=== PATIENT | female | born 1945 | race Caucasian/White ===

== ENCOUNTER 2019-06-22 13:05 | Inpatient (IN) | payer MEDICARE, OTHER, SELFPAY ==
[2019-06-05 08:43] VITALS: BMI 34.3
[2019-06-21] VITALS (11 sets, daily range): BP systolic 83–154; BP diastolic 44–96; PULSE 82–103; RESP 11–19; TEMP 36.8–37.1; O2SAT 95–100; BMI 34.3
--- NOTE | 2019-06-21 06:00 | DI.RAD.S_ITS ---
PROCEDURE: XR KNEE RT 1TO2V INDICATIONS: right total knee TECHNIQUE: 2 view(s) of the knee acquired. COMPARISON: None. FINDINGS: Bones: Patient is status post knee joint arthroplasty. Hardware components are in expected positions. Visualized bony structures are intact. Soft tissues: Overlying postoperative changes are noted. IMPRESSION: Normal postoperative appearance after right total knee arthroplasty. Dictated by: Honorio Suarez M.D. on 06/21/2019 at 12:10 Approved by: Honorio Suarez M.D. on 06/21/2019 at 12:10
--- NOTE | 2019-06-21 08:04 | PM.PREOP ---
Pre-operative Note Interval Note History & Physical reviewed/Exam performed by Physician: Yes Changes to H&P: No
--- NOTE | 2019-06-21 08:05 | PM.OP.1 ---
Operative Date/Time/Diagnoses Date of procedure: 06/21/19 Time of procedure: 11:08 Pre-op diagnosis: Right knee osteoarthritis Post-op diagnosis: same Procedure & Clinicians Procedure: Right total knee arthroplasty Same procedure as scheduled: Yes Indications: The patient presents today for total knee arthroplasty after failure of conservative treatment. The nature of the procedure including the risks and benefits, alternatives, postoperative course and expected outcome were discussed and all questions answered. Consent was obtained. Operative site confirmed and marked. Surgeon: Patrice Betancourt Desktop Publishing Associate: Denny Alfaro Anesthesia Type: General, Spinal and Local Operative Notes Findings: Right knee osteoarthritis with severe varus alignment. Closure Type: primary Specimen(s): none sent Prosthetic devices, grafts, tissues, transplants, or devices: Apodaca and Nephew Jose Roberto BCS: 6 femoral component, 3 tibial component, 9 mm BCS polyethylene tray and 32 x 9 mm round patella Applied: implant(s) Estimated Blood Loss (mL): 10 Blood products transfused: none Tourniquet time (min): 53 Procedure in detail: The patient was taken to the operative suite and placed under general and spinal anesthesia. The patient was given prophylactic antibiotics prior to surgery. The patient was also given tranexamic acid, 1 g, just prior to surgery for postoperative hemostasis. The lateral knee was prepped and the joint injected with 20 mL of 1% Lidocaine with epinephrine. The knee was then prepped and draped in usual sterile fashion. The leg was exsanguinated with an Esmarch dressing and the tourniquet raised to 250 torr. A 15 cm anterior incision was made. Next a medial trivector arthrotomy was made. The extensor mechanism was marked to ensure accurate repair. Initial exposing dissection was carried out medially and laterally. The knee was then extended and the patellar thickness was measured and a cut made removing approximately 9 mm of bone. The patella was then sized and drilled. Some excess lateral bone was excised and the patellofemoral ligament released. The knee was then flexed and the intramedullary femoral guide amol placed. The distal femoral cut was made in 6 ? of valgus at the +2 position. The femoral size was measured and the appropriate cutting block was then placed and the anterior, posterior and chamfer cuts made. The intramedullary tibial alignment amol was then placed. The guide was set to remove approximately 10 mm from the less affected lateral side. The proximal tibial cut was then made with an oscillating saw. All meniscus and bony debris was then removed. Posterior femoral osteophytes removed with a curved osteotome. Flexion extension gaps were checked. There is just mild medial tightness after routine exposure and osteophyte removal. This was corrected with percutaneous release of the MCL with an 18 gauge needle. The soft tissues were then injected with a combination of 20 mL of half percent Marcaine with epinephrine and 20 mL of Exparel. The trial components were then placed. The knee went into full extension and flexion beyond 120?. There was excellent medial-lateral balance throughout motion. Patellar tracking was excellent. The trial components were removed and the knee was cleansed with Pulsavac irrigation and dried. The final components were cemented with high viscosity vacuum mixed bone cement with antibiotics. The joint was filled with a dilute Betadine solution. The knee was held in extension and the patellar clamped until the cement was fully cured. The knee was then irrigated. The extensor mechanism was closed with 5 interrupted #1 Vicryl sutures and a running Quill suture at 90 degrees of flexion. The joint was then injected with a combination of 1 g of tranexamic acid and 20 mL of quarter percent Marcaine with epinephrine. The subcutaneous tissue was closed with 2 0 Vicryl. The skin was closed with pietro and surgical adhesive. An Aquacel dressing and Ac wrap were then applied. The patient tolerated the procedure well and was returned to recovery room in good condition. Complications: none Post-operative Condition: stable Disposition: PACU Plan for aftercare: [facility] protocol for total knee arthroplasty.
[2019-06-21] MEDS: LACTATED RINGERS 1,000 ML 42 ML IV ×2 (08:15→10:40)
[2019-06-21] MEDS: ACETAMINOPHEN 325 MG TABLET 975 MG PO ×3 (08:41→20:28)
[2019-06-21] MEDS: CELECOXIB 200 MG CAPSULE PO (08:42)
[2019-06-21] MEDS: PREGABALIN 75 MG CAPSULE PO (08:42)
[2019-06-21] MEDS: MIDAZOLAM 2 MG/2 ML VIAL IV (09:20)
[2019-06-21] MEDS: fentaNYL 100 MCG/2 ML INJ 50 MCG IV ×2 (09:20→09:22)
[2019-06-21] MEDS: CEFAZOLIN 2 GM/100 ML FROZ.PIGGY IV ×2 (09:40→18:11)
--- NOTE | 2019-06-21 10:13 | SUR.OPER ---
Supine on padded OR bed. Pillow under head, arms secured on padded armboards <90 degree abduction. Safety belt across torso. Non-operative leg secured with tape over blanket over lower leg. Operative leg secured in DeMayo/Michael positioner. Foam padded brace at thigh of operative leg.
[2019-06-21] MEDS: TRANEXAMIC ACID 1,000 MG VIAL 1000 MG INJ ×2 (10:23→10:29)
[2019-06-21] MEDS: LIDOCAINE 1% W/EPI 20 ML INJ (10:23)
[2019-06-21] MEDS: BUPIVACAINE 0.25% W/ EPI (PF) 40 ML, BUPIVACAINE LIPOSOME 266 MG, SODIUM CHLORIDE 0.9% ... INJ ×2 (10:24→10:30)
[2019-06-21] MEDS: SODIUM CHLORIDE IRRIG SOLUTION 250 ML, POVIDONE-IODINE SPONGE STICKS 1 APPLIC IRR (10:26)
[2019-06-21] MEDS: LACTATED RINGERS 1,000 ML 125 ML IV (13:49)
[2019-06-21] MEDS: OXYCODONE IR 5 MG TABLET 10 MG PO ×3 (13:50→20:28)
--- NOTE | 2019-06-21 14:46 | PC.NURSE ---
Admit Note: Home Medications are in pharmacy (see comment on front page) Patient to floor from Pacu with femoral nerve block; sensation to foot at 1400 with mild pain, PO pain med administered; c/m/s positive to RLE, ppp, LEORA wrap to and ice to right knee; O2 RA=99% ls clear; calf scds active; high fall risk, patient instructed to use call light, no void at this time
--- NOTE | 2019-06-21 17:12 | PT-IP ANOTE ---
Attempt PT at 14:45 and 1700 this PM but pt's RLE sensation is not at baseline. She is unable to perform supine leg press. Obtained social history and will reattempt PT tomorrow morning.
[2019-06-21] MEDS: HYDROMORPHONE 0.5 MG INJ IV ×3 (17:46→21:35)
[2019-06-21] MEDS: ASPIRIN EC 81 MG TABLET PO (20:29)
[2019-06-21] MEDS: PRAVASTATIN 20 MG TABLET 10 MG PO (20:29)
[2019-06-21] MEDS: hydrOXYzine pamoate 25 MG CAPSULE PO (21:54)
[2019-06-22] VITALS (10 sets, daily range): BP systolic 144–176; BP diastolic 53–78; PULSE 93–108; RESP 16–18; TEMP 36.2–37.4; O2SAT 92–100
[2019-06-22] MEDS: CEFAZOLIN 2 GM/100 ML FROZ.PIGGY IV (02:22)
[2019-06-22] MEDS: OXYCODONE IR 5 MG TABLET 10 MG PO ×7 (02:26→23:43)
[2019-06-22] MEDS: HYDROMORPHONE 0.5 MG INJ IV (02:31)
--- NOTE | 2019-06-22 03:13 | PC.NURSE ---
After taking vital signs pt requested to use the bedpan. Once bedpan was placed and HOB raised up pt pain went from 0/10 to 10/10 pain. Pt has requested not to have HOB moved upright. Pt also became very weepy and the RN, who was in the room, addressed the pain. 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 Afterward, she did stop crying and I reminded her to use the call light if she needed care.
[2019-06-22] MEDS: hydrOXYzine pamoate 25 MG CAPSULE PO ×4 (03:19→23:43)
--- NOTE | 2019-06-22 03:54 | PC.NURSE ---
Pt Ax0x3, VSS, lung sounds clear bilaterally. CMS is intact and romero wrap bandage is clean/dry and intact. Pt seems anxious. Pt very tearful this night expressing that she doesn't feel like she has support. When in the room with the aid, pt was placed on bedpan and went from 0-10 pain level immediately and tears, pt expressed that she thought staff was purposely causing pain. Pt was medicated for pain and expresses 0/10 pain at this time.
[2019-06-22 06:44] LABS: Hematocrit 37.1 % (36-46); Hemoglobin 12.4 g/dL (12.0-16.0)
[2019-06-22] MEDS: SODIUM CHLORIDE 0.9% FLUSH 10 ML IV ×2 (08:36→21:31)
[2019-06-22] MEDS: ACETAMINOPHEN 325 MG TABLET 975 MG PO ×3 (08:37→21:24)
[2019-06-22] MEDS: ASPIRIN EC 81 MG TABLET PO ×2 (08:37→21:26)
--- NOTE | 2019-06-22 09:01 | PC.NURSE ---
Addendum entered by Sanjuana Medrano R.N. 06/22/19 13:50: Was able to stand at bedside with PT, but did not transfer (see their note). Sleeping at this time. Pain 0 on FLACC scale. 2L O2 per NC, sats 94%. Calls with needs, light in reach. Bed alarm on. Original Note: Shift summary: Awake and alert, oriented X3. Very tearful and emotional. Reports 8/10 pain in R operative knee, and asked for clarification re: what meds are scheduled/PRN. States I just don't know...I need some clarification on what I'm supposed to be doing, I don't want to feel like I have to negotiate everything with everyone who comes in here. This aligner typewriter encouraged her to be proactive with staff, and we will try to make sure we ask her before we touch her or move anything. Medicated with scheduled Tylenol, plus PRN Oxycodone and Vistaril and updated times on white board for next available admin. Fresh ice packs to R knee. Plan to reposition in bed once pain meds kick in a bit (patient thought PO pain meds would start to work after 2 minutes or so, so this aligner typewriter oriented her to more of a 30-45 min time period). CMS+ to BLE's. Lungs CTA. HRR, a bit tachy. SCD to LLE only (refused RLE). Able to make needs known and calls appropriately. Light within reach, bed alarm active.
--- NOTE | 2019-06-22 10:57 | PT.IIE ---
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) S/P left unicompartmental knee replacement (Acute ~2004) Medical History (Last Updated 06/05/19 @ 09:27 by Marija Conte RN) Angioedema (Acute) Anxiety (Acute) Breast cancer, right (Acute ~2005) Easy bruisability (Acute) HLD (hyperlipidemia) (Acute) Pneumonia (Acute) RLS (restless legs syndrome) (Acute) Skin cancer (Acute) Spasmodic dysphonia (Acute) Physical Therapy Inpatient Evaluation/Re-Eval M1 PT/OT-IP Prior Functional Status Start: 06/21/19 14:38 Freq: NEEDED Status: Active Protocol: Document 06/22/19 10:57 AB (Rec: 06/22/19 13:09 AB [email or web address]) Medical Review Prior Functional Status Medical History Reviewed Yes Diet/Fluid Consistency Regular Communication able to make needs known Mobility and Gait pt stated that she usually uses a FWW for mobility but occasionally uses a SPC and when space is tight, pt furniture cuise. Activities of Daily Living and IADL's Pt was mod independent for ADLs before with FWW/ furniture for support in the house. 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 She has been needing more assistance from neighbors and friends to assist in grocery shopping, laundry and cleaning lately due to severe knee pain. Social History Household Members none Living Arrangements House Number of Floors (Floors) One Floor Number of Stairs To Enter/Railing? no KIMBERLY, 1 step from garage to home. 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 for many years. Pt decided to perform surgery at since she is more familiar with this area, along with friends and neighbors. She is planning to d/c to SNF first to improve mobility and strength prior to going back [place] home. M2 PT-IP Current Condition Start: 06/21/19 14:38 Freq: NEEDED Status: Active Protocol: Document 06/22/19 10:57 AB (Rec: 06/22/19 13:09 AB [email or web address]) Physical Therapy Current Condition Current Condition Evaluation Date 06/22/19 Treatment Diagnosis s/p R TKA; difficulty in walking Onset Date 06/21/19 Weight Bearing Status Weight Bearing Status Weight Bear as Tolerated M3 PT-IP Subjective Start: 06/21/19 14:38 Freq: NEEDED Status: Active Protocol: Document 06/22/19 10:57 AB (Rec: 06/22/19 13:09 AB [email or web address]) Subjective Physical Therapy Visit Type Type Initial Evaluation Visit Start Time 10:57 Visit Stop Time 11:52 Total Visit Minutes 55 Number of MANUFACTURERS SERVICE REPRESENTATIVE Visits 0 Physical Therapy Visit Comments Patient Comments pt agreeable to do PT Therapy Pain Assessment Pain When Pain Assessed During Mobility Pain Present Pain Present Pain Reported Location Right Knee Intensity 6 Scale Used Numeric (1 - 10) Pain Behaviors Guarding,Holding Area Pain Management Techniques Modification of Treatment,Re- positioning,Timing of Activity with Medications M4 PT-IP Mobility and Gait Start: 06/21/19 14:38 Freq: NEEDED Status: Active Protocol: Document 06/22/19 10:57 AB (Rec: 06/22/19 13:09 AB [email or web address]) PT-Bed Mobility Assessment Supine to Sit Supine to Sit Maximum Assistance,1 Person Assistance Sit to Supine Sit to Supine Maximum Assistance,2 Person Assistance Scooting Scooting to Edge of Bed Maximum Assistance PT-Transfer Assessment Sit to and From Stand Sit to and from Stand Moderate Assistance,2 Person Assistance,Use of Upper Extremities Equipment Transfer Assistive Device Gait Belt,Front Wheeled Walker Comments Mobility Comments pt requires cues with all tasks. pt completed supine to sit max A and max cues. pt was able to sit on EOB SBA but required max A to assist with scooting to EOB. pt completed sit to stand mod A x 2 and max cues. refused to transfer to the chair. instructed to take side steps towards HOB for positioning and completed with max A and max cues for quad activation. completed sit to supine max A x 2 and max cues. positioned pt in bed. call light and table placed within reach. Gait Assessment Gait Gait Assistance Required: Maximum Assistance,1 Person Assist Distance (Feet) 2 Able to Maintain Weight Bearing Status Yes During Gait Assistive Devices Assistive Device Gait Belt,Front Wheeled Walker Gait Deviations General Gait Pattern Decreased Stride Length, Decreased Feet Clearance Factors Limiting Gait Function Factors Limiting Gait Function Decreased Activity Tolerance, Decreased Strength,Limited Range of Motion,Pain,Poor Balance,Poor Safety Awareness Comments Gait Comments pt was able to take side steps towards HOB. PT-Balance Assessment Sitting Balance and Reactions Static Sitting Balance Ability Good Dynamic Sitting Balance Ability Good Standing Balance and Reactions Static Standing Balance Ability Poor Dynamic Standing Balance Ability Poor Device Used FWW M5 PT-IP Objective Assessments Start: 06/21/19 14:38 Freq: NEEDED Status: Active Protocol: Document 06/22/19 10:57 AB (Rec: 06/22/19 13:09 AB [email or web address]) Orientation Orientation/Cognition Level of Alertness Alert Orientation Name,Place,Situation Language Function Ability No Deficits Noted Safety Awareness Decreased Safety Awareness Memory Description Short Term Impaired Comments pt slightly sleepy and requires cues to open eyes with activities but able to answer questions and follow directions Gross Range of Motion Lower Extremity ROM Assessment Right Impaired Impairments R knee flexion: 25 deg extension: -20 deg Strength Lower Extremity Strength Assessment Bilaterally Impaired Comments Strength Comments LLE: 3+/5 RLE: 3-/5 Muscle Tone Muscle Tone WNL Yes M6 PT-IP Treatment Start: 06/21/19 14:38 Freq: NEEDED Status: Active Protocol: Document 06/22/19 10:57 AB (Rec: 06/22/19 13:09 AB [email or web address]) Physical Therapy Treatment Exercises Exercises Quad Sets,Heel Slides Education Education Provided Precautions,Weight Bearing Status,Post-Op Packet,Safety M7 PT-IP Assessment and Plan Start: 06/21/19 14:38 Freq: NEEDED Status: Active Protocol: Document 06/22/19 10:57 AB (Rec: 06/22/19 13:09 AB [email or web address]) PT Summary Assessment and Plan Potential Rehabilitation Potential Good Status of Condition at Evaluation Evolving Summary Impairments Pain,ROM,Strength,Balance, Coordination,Sensation,Tone, Cognition,Bed Mobility, Transfers,Gait,Activity Tolerance Assessment Summary pt requiring 2 person assist wtih mobility and unable to tolerate much activity with c/ o increase pain. pt lives alone and will not have much assistance at home. pt requiring increase assistance at this time and will require SNF rehab to improve strength and mobiltiy. Goals Bed Mobility Goal Minimal Assistance Transfer Goal Minimal Assistance,Front Wheeled Walker Gait Goal Minimal Assistance,Front Wheel Walker Gait Distance 100 Days to Meet Goals 5 Frequency of Treatment Frequency Of Treatment Twice a Day Treatment Plan Physical Therapy Treatment Plan Bed Mobility Training,Transfer Training,Gait Training, Therapeutic Exercise,Balance Retraining,Post Op Education, Discharge Planning,Hot or Cold Pack,Neuromuscular Re-ed, Coordination Retraining,Manual Therapy Other Recommendations and Next Treatment transfers, ambulation Focus Recommendations To Nursing Amount of Assist Needed 2 Person Assist Discharge Recommendations PT Discharge Recommendations SNF Rehab
--- NOTE | 2019-06-22 14:20 | P.PN_ITS ---
Subjective Subjective Date Patient Seen: 06/22/19 Time Patient Seen: 10:00 Interval history: Post op day 1 s/p right total knee arthroplasty with Dr. Betancourt. Overnight patient had moderate to severe pain that was moderately controlled with dilaudid. Pain was rated an 8/10. Today patient was given vistaril and the pain went to a 0/10. Patient ambulated with PT with some difficulty due to pain. Patient voiding and eating without difficulty or assistance. No bowel movement, but passing gas. Patient complains of poor treatment by overnight staff. Patient concerned about first post-op appointment location in [facility] of SNF discharge in [facility] [place]. Patient denies fever, chills, nausea, vomiting, chest pain, shortness of breath, calf pain. Exam Vital Signs (past 8 hours): - 06/22/19 07:00 06/22/19 08:19 06/22/19 11:55 Temperature 99 F Pulse Rate 102 H 108 H Respiratory Rate 17 Blood Pressure 162/75 H 176/78 H Pulse Oximetry 97 92 06/22/19 12:30 06/22/19 13:08 Temperature 98.4 F Pulse Rate 96 H Respiratory Rate 16 Blood Pressure 145/72 H Pulse Oximetry 94 98 Oxygen Delivery Method Nasal Cannula Oxygen Flow Rate 2 Narrative Exam Narrative: 73 year old female lying in bed comfortably, in no apparent distress. A&Ox3. Dressing is CDI on right knee. Knee is warm, dry, without lesions or rashes. Patient able to actively dorsiflex/plantar flex. Sensation grossly intact to light touch in lower extremities bilaterally. Dorsalis pedis 2+ bilaterally. Capillary refill <2 seconds. Objective Labs Result Diagrams: 06/22/19 06:22 Labs: Laboratory Results - last 24 hr 06/22/19 06:22 Hgb 12.4 Hct 37.1 Assessment & Plan Post-op Postoperative Procedures: Procedures Operation Date: 06/21/19 09:45 Actual Procedures Side Surgeon p Total Knee Arthroplasty Right Patrice Betancourt MD Postoperative plan narrative: Continue current pain management, muscle spasm control with vistaril Continue mobilization with PT - most likely to progress better due to muscle spasm control Discharge planned for SNF, patient changed to inpatient today, will stay for 3 nights until discharge Time Spent With Patient Time with patient: less than 15 minutes
--- NOTE | 2019-06-22 15:07 | CM.IDA ---
Addendum entered by YENNY Caceres 06/22/19 15:42: Pt went to [facility] 2 years ago after her CABBG, wants to try [facility]. Original Note: Initial DCP Assessment Note: Pt is a 73 yo female, resident of [place], [place]. Pt POD#1 from knee surgery done by Dr Betancourt. PCP: [facility] Payer: Medicare/[employer] Met w/pt this morning, explained SW role. Pt teary throughout our conversation and states I'm sorry I'm in pain and emotional right now RN just administered pain pill. Pt has lived in [facility] for 8 months, she has planned to DC from here to SNF and discussed this far in advance w/the Orthopedic team, she reports they told her this would be a feasible DC plan, thus pt proceeded with the surgery. Pt does not have any support in [place], no friends or family to assist her. Pt had lived on [address] for 17 years before she and her ex- got a divorce and sold their home. Pt's dtr lives in [place] and son lives in [place]. Pt had been receiving steroid injections from Dr Betancourt for 6 years while living in this area and she decided to return here for her surgery. Reviewed status SDC, obs, inpt. Pt hopes she is inpt to access her Medicare benefit and requests this [employer] SPECIALIST fax referral to [facility] 2. [facility]. Spoke w/ UR JAMISON Ibrahim who has made pt an inpt as of today 06.22.19. This SCALP TREATMENT SPECIALIST will fax referral packet to [facility] today. [facility] needed. P: DC expected to SNF 06.25.19 via cabulance. Following closely for additional coordination. YENNY Caceres Discharge Planning/Care Management CM Discharge Assessment Start: 06/22/19 15:04 Freq: Status: Active Protocol: Document 06/22/19 15:04 JANIE (Rec: 06/22/19 15:07 JANIE [id number]) Discharge Planning Assessment Assigned [employer] YENNY Simpson DPOA/Assigned Designee Name Cayla Almanza dtr Contact Information [phone] Advance Directives? Yes Advance Directives on File No History Provided By Patient Prior Living Arrangements House Household Members none Type of transporation used prior to Drives own vehicle admit Independent with ADL's Yes Is patient alert and oriented? Yes Patient/Family Preference Care Home Facility Barriers to Discharge Yes Comment Lives alone in [place] and does not have family or friends to support or assist once home. Discharge Plan Care Home Facility Transportation Arrangement SNF/cabulance Referrals Initiated Care Home Medicare Choice List Provided Yes SN[facility]/HH [facility]ference [facility] Has Agency SNF been contacted Yes Whiteboard Updated in Patient Room with Yes name and ext. # of [employer] Review Status In Process
--- NOTE | 2019-06-22 15:40 | PT.IPTN ---
Current Diagnoses Unilateral primary osteoarthritis, right knee (06/21/19) Presence of left artificial knee joint (06/21/19) Surgery Performed Operation Date: 06/21/19 09:45 Actual Procedures p Total Knee Arthroplasty(Right) - Patrice Betancourt MD Physical Therapy Treatment Note M2 PT-IP Current Condition Start: 06/21/19 14:38 Freq: NEEDED Status: Active Protocol: Document 06/22/19 10:57 AB (Rec: 06/22/19 13:09 AB [email or web address]) Physical Therapy Current Condition Current Condition Evaluation Date 06/22/19 Treatment Diagnosis s/p R TKA; difficulty in walking Onset Date 06/21/19 Weight Bearing Status Weight Bearing Status Weight Bear as Tolerated M3 PT-IP Subjective Start: 06/21/19 14:38 Freq: NEEDED Status: Active Protocol: Document 06/22/19 15:40 AB (Rec: 06/22/19 17:14 AB [id number]) Subjective Physical Therapy Visit Type Type Treatment Note Visit Start Time 15:40 Visit Stop Time 16:31 Total Visit Minutes [address]ROL Visits 0 Physical Therapy Visit Comments Patient Comments pt agreeable to do PT Therapy Pain Assessment Pain When Pain Assessed During Mobility Pain Present Pain Present Pain Reported Location Right Knee Intensity 5 Scale Used Numeric (1 - 10) Pain Management Techniques Re-positioning,Timing of Activity with Medications M4 PT-IP Mobility and Gait Start: 06/21/19 14:38 Freq: NEEDED Status: Active Protocol: Document 06/22/19 15:40 AB (Rec: 06/22/19 17:14 AB [id number]) PT-Bed Mobility Assessment Supine to Sit Supine to Sit Maximum Assistance,1 Person Assistance Sit to Supine Sit to Supine Maximum Assistance,1 Person Assistance Scooting Scooting to Edge of Bed Maximum Assistance PT-Transfer Assessment Sit to and From Stand Sit to and from Stand Moderate Assistance,Maximum Assistance,1 Person Assistance Equipment Transfer Assistive Device Front Wheeled Walker Orthotic/Prosthetic Devices or Brace: No Comments Mobility Comments pt completed supine to sit max A and max cues. pt was able to assist with movement of RLE better this tx session compared to this morning. pt c/o lightheadedness. BP checked: 193/87. pt refused to sit up on the chair. instructed pt to stand up and take sidesteps to reposition towards HOB. pt completed sit to stand from EOB mod A and cues. pt was able to take side steps using fWW mod A and cues. pt stated that it feels good to stand and that he is steady on his RLE. pt wanted to stand for a few minutes and tolerated ~ 6 min of static standing. required min A for controlled descent to the bed. completed sit to supine max A and max cues. positioned pt in bed. call light and table placed within reach . Gait Assessment Gait Gait Assistance Required: Moderate Assistance Distance (Feet) 2 Able to Maintain Weight Bearing Status Yes During Gait Assistive Devices Assistive Device Gait Belt,Front Wheeled Walker Orthotic/Prosthetic Devices or Brace: No Gait Deviations General Gait Pattern Antalgic,Decreased Stride Length,Decreased Feet Clearance Factors Limiting Gait Function Factors Limiting Gait Function Decreased Activity Tolerance, Decreased Strength,Limited Range of Motion,Pain,Poor Balance,Poor Safety Awareness Comments Gait Comments completed sidestepping towards HOB. PT-Balance Assessment Standing Balance and Reactions Device Used FWW M5 PT-IP Objective Assessments Start: 06/21/19 14:38 Freq: NEEDED Status: Active Protocol: Document 06/22/19 10:57 AB (Rec: 06/22/19 13:09 AB [email or web address]) Orientation Orientation/Cognition Level of Alertness Alert Orientation Name,Place,Situation Language Function Ability No Deficits Noted Safety Awareness Decreased Safety Awareness Memory Description Short Term Impaired Comments pt slightly sleepy and requires cues to open eyes with activities but able to answer questions and follow directions Gross Range of Motion Lower Extremity ROM Assessment Right Impaired Impairments R knee flexion: 25 deg extension: -20 deg Strength Lower Extremity Strength Assessment Bilaterally Impaired Comments Strength Comments LLE: 3+/5 RLE: 3-/5 Muscle Tone Muscle Tone WNL Yes M6 PT-IP Treatment Start: 06/21/19 14:38 Freq: NEEDED Status: Active Protocol: Document 06/22/19 15:40 AB (Rec: 06/22/19 17:14 AB [id number]) Physical Therapy Treatment Exercises Exercises Heel Slides Education Education Provided Weight Bearing Status,Safety M7 PT-IP Assessment and Plan Start: 06/21/19 14:38 Freq: NEEDED Status: Active Protocol: Document 06/22/19 15:40 AB (Rec: 06/22/19 17:14 AB [id number]) PT Summary Assessment and Plan Potential Rehabilitation Potential Good Summary Impairments Pain,ROM,Strength,Balance, Coordination,Sensation,Bed Mobility,Transfers,Gait, Activity Tolerance Progress Towards Goals Slow Progress due to Pain,Slow Progress due to Medical Issues,Slow Progress due to Activity Tolerance Assessment Summary pt progressing slowly but continues to require mod to max A with mobiltiy. unable to ambulate due to decrease activity tolerance but able to take side steps towards HOB. pt will benefit from SNF rehab to improve strength and functional mobility. Goals Bed Mobility Goal Minimal Assistance Transfer Goal Minimal Assistance,Front Wheeled Walker Gait Goal Minimal Assistance,Front Wheel Walker Gait Distance 100 Days to Meet Goals 5 Frequency of Treatment Frequency Of Treatment Twice a Day Treatment Plan Physical Therapy Treatment Plan Bed Mobility Training,Transfer Training,Gait Training, Therapeutic Exercise,Balance Retraining,Post Op Education, Discharge Planning,Hot or Cold Pack,Neuromuscular Re-ed, Coordination Retraining,Manual Therapy Other Recommendations and Next Treatment transfers, ambulation Focus Recommendations To Nursing Amount of Assist Needed 2 Person Assist Discharge Recommendations PT Discharge Recommendations SNF Rehab
[2019-06-22] MEDS: SENNOSIDES 8.6 MG TABLET PO (21:25)
[2019-06-22] MEDS: PRAVASTATIN 20 MG TABLET 10 MG PO (21:25)
--- NOTE | 2019-06-22 23:30 | PC.NURSE ---
A&OX3. 94% 2LNC. pt refused care from assigned FLOUR WORKER. Floor staff assisted her with her ADLS. pt used the bedpan. SCDS are on. dressing cdi w/romero wrap. PP++. RLE edema +2. CMS+. pt rates her pain 9/10 with movement, 4/10 w/o movement. call light in reach. bed alarm active.
[2019-06-23] VITALS (8 sets, daily range): BP systolic 121–159; BP diastolic 56–73; PULSE 95–107; RESP 14–19; TEMP 36.8–37.4; O2SAT 89–97
[2019-06-23] MEDS: OXYCODONE IR 5 MG TABLET 10 MG PO ×6 (03:10→20:06)
--- NOTE | 2019-06-23 05:01 | PC.NURSE ---
Pt alert and oriented. Reports pain resolved with oxycodone. Pt right knee aquacell dressing wrapped in romero wrap clean dry and intact. Ice applied. Scds on. CMS intact. No complaints
[2019-06-23] MEDS: hydrOXYzine pamoate 25 MG CAPSULE PO (06:06)
[2019-06-23] MEDS: HYDROMORPHONE 0.5 MG INJ IV (06:33)
[2019-06-23] MEDS: ASPIRIN EC 81 MG TABLET PO ×2 (10:05→20:06)
[2019-06-23] MEDS: ACETAMINOPHEN 325 MG TABLET 975 MG PO ×3 (10:05→20:06)
[2019-06-23] MEDS: SODIUM CHLORIDE 0.9% FLUSH 10 ML IV ×2 (10:07→20:10)
--- NOTE | 2019-06-23 11:29 | CM.DPC ---
DCP Cont: Patient is being accepted at [facility] in [facility]. Discharge date would occur on Monday, 06/25, for this will be 3 midnight stay. Went and updated patient in her room. She had this brand planner write this information in her notebook. Updated her white board as well. Patient grateful that she can go to [facility] for rehab. P: DCP will continue to check in. Plan is for patient to go to [facility] in [facility] on Monday. Taryn Mcghee RN/Commercial Finance Manager
--- NOTE | 2019-06-23 12:11 | PT.IPTN ---
Current Diagnoses Unilateral primary osteoarthritis, right knee (06/21/19) Presence of left artificial knee joint (06/21/19) Surgery Performed Operation Date: 06/21/19 09:45 Actual Procedures p Total Knee Arthroplasty(Right) - Patrice Betancourt MD Physical Therapy Treatment Note M2 PT-IP Current Condition Start: 06/21/19 14:38 Freq: NEEDED Status: Active Protocol: Document 06/22/19 10:57 AB (Rec: 06/22/19 13:09 AB [email or web address]) Physical Therapy Current Condition Current Condition Evaluation Date 06/22/19 Treatment Diagnosis s/p R TKA; difficulty in walking Onset Date 06/21/19 Weight Bearing Status Weight Bearing Status Weight Bear as Tolerated M3 PT-IP Subjective Start: 06/21/19 14:38 Freq: NEEDED Status: Active Protocol: Document 06/23/19 11:36 CLB (Rec: 06/23/19 12:52 CLB [id number]) Subjective Physical Therapy Visit Type Type Treatment Note Visit Start Time 11:36 Visit Stop Time 12:11 Total Visit Minutes 38 Number of SAP PI ARCHITECT Visits 1 Physical Therapy Visit Comments Patient Comments pt agreeable to do PT Therapy Pain Assessment Pain When Pain Assessed During Mobility Pain Present Pain Present Pain Reported Location Right Knee Intensity 5 Scale Used Numeric (1 - 10) Pain Management Techniques Re-positioning,Timing of Activity with Medications M4 PT-IP Mobility and Gait Start: 06/21/19 14:38 Freq: NEEDED Status: Active Protocol: Document 06/23/19 11:36 CLB (Rec: 06/23/19 12:52 CLB [id number]) PT-Bed Mobility Assessment Supine to Sit Supine to Sit Moderate Assistance,1 Person Assistance Scooting Scooting to Edge of Bed Moderate Assistance PT-Transfer Assessment Sit to and From Stand Sit to and from Stand Minimal Assistance,Moderate Assistance,1 Person Assistance ,Use of Upper Extremities Equipment Transfer Assistive Device Gait Belt,Front Wheeled Walker Orthotic/Prosthetic Devices or Brace: No Transfers Transfer Destination Chair Transfer Ability Level of Assist Minimal Assistance,Moderate Assistance,1 Person Assistance ,Use of Upper Extremities Comments Mobility Comments Pt required Min A for sit> stand from bed and Mod A from window seat. Gait Assessment Gait Gait Assistance Required: Minimum Assistance,1 Person Assist Distance (Feet) 8 Able to Maintain Weight Bearing Status Yes During Gait Assistive Devices Assistive Device Gait Belt,Front Wheeled Walker Gait Deviations General Gait Pattern Antalgic,Decreased Stride Length,Decreased Feet Clearance Factors Limiting Gait Function Factors Limiting Gait Function Decreased Activity Tolerance, Decreased Strength,Limited Range of Motion,Pain,Poor Balance,Poor Safety Awareness Comments Gait Comments Pt able to ambulate ~8ft in room with cues for weight shifting. Pt able to advance RLE using small lift and placement but only shuffled LLE forward to prevent FWB on RLE. M5 PT-IP Objective Assessments Start: 06/21/19 14:38 Freq: NEEDED Status: Active Protocol: Document 06/22/19 10:57 AB (Rec: 06/22/19 13:09 AB [email or web address]) Orientation Orientation/Cognition Level of Alertness Alert Orientation Name,Place,Situation Language Function Ability No Deficits Noted Safety Awareness Decreased Safety Awareness Memory Description Short Term Impaired Comments pt slightly sleepy and requires cues to open eyes with activities but able to answer questions and follow directions Gross Range of Motion Lower Extremity ROM Assessment Right Impaired Impairments R knee flexion: 25 deg extension: -20 deg Strength Lower Extremity Strength Assessment Bilaterally Impaired Comments Strength Comments LLE: 3+/5 RLE: 3-/5 Muscle Tone Muscle Tone WNL Yes M6 PT-IP Treatment Start: 06/21/19 14:38 Freq: NEEDED Status: Active Protocol: Document 06/23/19 11:36 CLB (Rec: 06/23/19 12:52 CLB [id number]) Physical Therapy Treatment Exercises Exercises Ankle Pumps,Quad Sets,Heel Slides Education Education Provided Weight Bearing Status,Safety M7 PT-IP Assessment and Plan Start: 06/21/19 14:38 Freq: NEEDED Status: Active Protocol: Document 06/23/19 11:36 CLB (Rec: 06/23/19 12:52 CLB [id number]) PT Summary Assessment and Plan Summary Impairments Pain,ROM,Strength,Balance, Coordination,Sensation,Bed Mobility,Transfers,Gait, Activity Tolerance Progress Towards Goals Slow Progress due to Pain,Slow Progress due to Medical Issues,Slow Progress due to Activity Tolerance Assessment Summary Pt continues to progress slowly but was able to improve with bed mobility and increased gait distance. Goals Bed Mobility Goal Minimal Assistance Transfer Goal Minimal Assistance,Front Wheeled Walker Gait Goal Minimal Assistance,Front Wheel Walker Gait Distance 100 Days to Meet Goals 5 Frequency of Treatment Frequency Of Treatment Twice a Day Treatment Plan Physical Therapy Treatment Plan Bed Mobility Training,Transfer Training,Gait Training, Therapeutic Exercise,Balance Retraining,Post Op Education, Discharge Planning,Hot or Cold Pack,Neuromuscular Re-ed, Coordination Retraining,Manual Therapy Other Recommendations and Next Treatment transfers, ambulation Focus Recommendations To Nursing Amount of Assist Needed 2 Person Assist Discharge Recommendations PT Discharge Recommendations SNF Rehab
--- NOTE | 2019-06-23 14:28 | PM.PN.1 ---
Subjective Subjective Date Patient Seen: 06/23/19 Time Patient Seen: 12:12 Interval history: Alka is making some progress with physical therapy. She continues to have significant problems with pain control. She is seated in a chair but has not been able to ambulate outside the room. She lives in [place] by herself and was anticipating taking a train home when she is recovered to the extent that she can be independent. Exam Vital Signs (past 8 hours): - 06/23/19 08:00 06/23/19 13:15 06/23/19 13:17 Temperature 98.3 F 98.4 F Pulse Rate 103 H 107 H Respiratory Rate 17 16 Blood Pressure 159/73 H 121/56 L Pulse Oximetry 95 89 L 96 06/23/19 14:06 Temperature Pulse Rate Respiratory Rate Blood Pressure Pulse Oximetry 94 Oxygen Delivery Method Nasal Cannula Oxygen Flow Rate 2 Narrative Exam Narrative: Resting comfortably in a chair, alert and oriented, dressings dry and intact, but weak straight leg raise on the right, neurologically intact distally vascular status intact distally she has a weak active straight leg raise on the right. Objective Labs Result Diagrams: 06/22/19 06:22 Assessment & Plan Assessment & Plan narrative: Impression is improving postoperatively status post right total knee arthroplasty. Continued issues with pain control overall. I anticipate she will require additional inpatient treatment and I anticipate a ventral discharged to a nursing home facility for rehab.
--- NOTE | 2019-06-23 14:52 | PT.IPTN ---
Current Diagnoses Unilateral primary osteoarthritis, right knee (06/21/19) Presence of left artificial knee joint (06/21/19) Surgery Performed Operation Date: 06/21/19 09:45 Actual Procedures p Total Knee Arthroplasty(Right) - Patrice Betancourt MD Physical Therapy Treatment Note M2 PT-IP Current Condition Start: 06/21/19 14:38 Freq: NEEDED Status: Active Protocol: Document 06/22/19 10:57 AB (Rec: 06/22/19 13:09 AB [email or web address]) Physical Therapy Current Condition Current Condition Evaluation Date 06/22/19 Treatment Diagnosis s/p R TKA; difficulty in walking Onset Date 06/21/19 Weight Bearing Status Weight Bearing Status Weight Bear as Tolerated M3 PT-IP Subjective Start: 06/21/19 14:38 Freq: NEEDED Status: Active Protocol: Document 06/23/19 14:13 CLB (Rec: 06/23/19 15:21 CLB [id number]) Subjective Physical Therapy Visit Type Type Treatment Note Visit Start Time 14:13 Visit Stop Time 14:52 Total Visit Minutes 39 Number of INFORMATION SECURITY ASSOCIATE Visits 2 Physical Therapy Visit Comments Patient Comments pt agreeable to do PT. Pt stated that after talking with the doctor she is thinking she won't go to SNF rehab. Therapy Pain Assessment Pain When Pain Assessed During Mobility Pain Present Pain Present Pain Reported Location Right Knee Intensity 5 Scale Used Numeric (1 - 10) Pain Management Techniques Re-positioning,Timing of Activity with Medications M4 PT-IP Mobility and Gait Start: 06/21/19 14:38 Freq: NEEDED Status: Active Protocol: Document 06/23/19 14:13 CLB (Rec: 06/23/19 15:21 CLB [id number]) PT-Bed Mobility Assessment Sit to Supine Sit to Supine Minimal Assistance,1 Person Assistance Scooting Scooting Up and Down in Bed Minimal Assistance PT-Transfer Assessment Sit to and From Stand Sit to and from Stand Minimal Assistance,1 Person Assistance,Use of Upper Extremities Equipment Transfer Assistive Device Gait Belt,Front Wheeled Walker Orthotic/Prosthetic Devices or Brace: No Transfers Transfer Destination Chair Transfer Ability Level of Assist Minimal Assistance,1 Person Assistance,Use of Upper Extremities Comments Mobility Comments Pt improving with all transfers requiring Min A with RLE into bed. Gait Assessment Gait Gait Assistance Required: Minimum Assistance,1 Person Assist Distance (Feet) 15 Able to Maintain Weight Bearing Status Yes During Gait Assistive Devices Assistive Device Gait Belt,Front Wheeled Walker Gait Deviations General Gait Pattern Antalgic,Decreased Stride Length,Decreased Feet Clearance Factors Limiting Gait Function Factors Limiting Gait Function Decreased Activity Tolerance, Decreased Strength,Limited Range of Motion,Pain,Poor Balance,Poor Safety Awareness Comments Gait Comments Pt improved with gait quality but will scoot LLE backwards towards bed before sitting rather than pick it up to walk it back. M5 PT-IP Objective Assessments Start: 06/21/19 14:38 Freq: NEEDED Status: Active Protocol: Document 06/22/19 10:57 AB (Rec: 06/22/19 13:09 AB [email or web address]) Orientation Orientation/Cognition Level of Alertness Alert Orientation Name,Place,Situation Language Function Ability No Deficits Noted Safety Awareness Decreased Safety Awareness Memory Description Short Term Impaired Comments pt slightly sleepy and requires cues to open eyes with activities but able to answer questions and follow directions Gross Range of Motion Lower Extremity ROM Assessment Right Impaired Impairments R knee flexion: 25 deg extension: -20 deg Strength Lower Extremity Strength Assessment Bilaterally Impaired Comments Strength Comments LLE: 3+/5 RLE: 3-/5 Muscle Tone Muscle Tone WNL Yes M6 PT-IP Treatment Start: 06/21/19 14:38 Freq: NEEDED Status: Active Protocol: Document 06/23/19 14:13 CLB (Rec: 06/23/19 15:21 CLB [id number]) Physical Therapy Treatment Exercises Exercises Ankle Pumps,Gluteal Sets,Quad Sets,Heel Slides,Short Arc Quads Education Education Provided Weight Bearing Status,Safety Other Treatments Other Treatment Performed Put on SCD's once pt was back to bed. M7 PT-IP Assessment and Plan Start: 06/21/19 14:38 Freq: NEEDED Status: Active Protocol: Document 06/23/19 14:13 CLB (Rec: 06/23/19 15:21 CLB [id number]) PT Summary Assessment and Plan Summary Impairments Pain,ROM,Strength,Balance, Coordination,Sensation,Bed Mobility,Transfers,Gait, Activity Tolerance Progress Towards Goals Slow Progress due to Pain,Slow Progress due to Medical Issues,Slow Progress due to Activity Tolerance Assessment Summary Pt improving with all mobility but would not be safe for discharge home without 24/7 assist with someone capable of providing Min-Mod A. Pt would benefit from SNF rehab to improve strength, mobility and increase activity tolerance. Goals Bed Mobility Goal Minimal Assistance Transfer Goal Minimal Assistance,Front Wheeled Walker Gait Goal Minimal Assistance,Front Wheel Walker Gait Distance 100 Days to Meet Goals 5 Frequency of Treatment Frequency Of Treatment Twice a Day Treatment Plan Physical Therapy Treatment Plan Bed Mobility Training,Transfer Training,Gait Training, Therapeutic Exercise,Balance Retraining,Post Op Education, Discharge Planning,Hot or Cold Pack,Neuromuscular Re-ed, Coordination Retraining,Manual Therapy Other Recommendations and Next Treatment transfers, ambulation Focus Recommendations To Nursing Amount of Assist Needed 2 Person Assist Discharge Recommendations PT Discharge Recommendations SNF Rehab
[2019-06-23] MEDS: PRAVASTATIN 20 MG TABLET 10 MG PO (20:06)
[2019-06-23] MEDS: SENNOSIDES 8.6 MG TABLET PO (20:06)
[2019-06-24] MEDS: OXYCODONE IR 5 MG TABLET 10 MG PO ×6 (01:10→21:01)
--- NOTE | 2019-06-24 01:32 | PC.NURSE ---
Addendum entered by Daysi Dwyer R.N. 06/24/19 06:13: Up between 0300 and 0430 to bathroom, walking around room and sitting up in chair. When back in bed was medicated with Oxycodone for 6/10 right knee pain and currently is asleep. Original Note: Patient is alert and oriented. Breath sounds CTA but only 89% on RA (found with oxygen off) so placed back on oxygen at 1L/min per NC (which she was on at shift change). HRR. Denies nausea. BT present and abdomen is soft; passing flatus. Denies dysuria, frequency or urgency. Is able to assist with repositioning. Out of bed with walker and 1 assist although states she is still feeling weak in right LE. Aquacel dressing CDI; romero wrap over dressing on right knee. Bruising noted on left UE and right thigh. Nonpitting edema present in right foot/ankle/lower leg. CMS is intact. States pain is 6/10; requests/medicated with Oxycodone + Vistaril and ice applied. Fall risk score is moderate; bed alarm is activated. Wearing bilateral calf SCD's.
[2019-06-24] MEDS: hydrOXYzine pamoate 25 MG CAPSULE PO (01:33)
[2019-06-24 04:32] VITALS: BP 149/83; PULSE 103; RESP 20; TEMP 37.5; O2SAT 96
--- NOTE | 2019-06-24 07:44 | P.PN_ITS ---
Subjective Subjective Date Patient Seen: 06/24/19 Time Patient Seen: 07:44 Interval history: POD #3 s/p L TKA with Dr. Betancourt. Patient lives in [place] and has been slow to mobilize. She is likely requiring SNF. Complaints of muscle spasms this morning. Exam Vital Signs (past 8 hours): - 06/24/19 04:32 Temperature 99.5 F Pulse Rate 103 H Respiratory Rate 20 Blood Pressure 149/83 H Pulse Oximetry 96 Oxygen Delivery Method Nasal Cannula Oxygen Flow Rate 1 Narrative Exam Narrative: Patient lying in bed in no acute distress. She is alert are x3. Calves are soft, compressible, nontender bilaterally. SCDs in place. Pulses are symmetrical. She is able to actively dorsiflex and plantar flex. Ac wrap in place. Dressing CDI. Objective Labs Result Diagrams: 06/22/19 06:22 Assessment & Plan Post-op Postoperative Procedures: Procedures Operation Date: 06/21/19 09:45 Actual Procedures Side Surgeon p Total Knee Arthroplasty Right Patrice Betancourt MD patient will continue to mobilize with physical therapy today. She can try taking Flexeril for muscle spasms today. She will likely need intermediate facility with discharged tomorrow.
[2019-06-24] MEDS: MAGNESIUM HYDROXIDE 30 ML UDC PO (09:31)
[2019-06-24] MEDS: ACETAMINOPHEN 325 MG TABLET 975 MG PO ×3 (09:31→21:02)
[2019-06-24] MEDS: DOCUSATE 100 MG CAPSULE PO (09:32)
[2019-06-24] MEDS: ASPIRIN EC 81 MG TABLET PO ×2 (09:32→21:02)
[2019-06-24] MEDS: CYCLOBENZAPRINE 5 MG TABLET PO (09:32)
[2019-06-24] MEDS: SODIUM CHLORIDE 0.9% FLUSH 10 ML IV ×2 (09:33→21:02)
[2019-06-24 09:45] VITALS: BP 157/71; PULSE 99; RESP 18; TEMP 37.4; O2SAT 93
--- NOTE | 2019-06-24 09:45 | PT.IPTN ---
Current Diagnoses Unilateral primary osteoarthritis, right knee (06/21/19) Presence of left artificial knee joint (06/21/19) Surgery Performed Operation Date: 06/21/19 09:45 Actual Procedures p Total Knee Arthroplasty(Right) - Patrice Betancourt MD Physical Therapy Treatment Note M2 PT-IP Current Condition Start: 06/21/19 14:38 Freq: NEEDED Status: Active Protocol: Document 06/22/19 10:57 AB (Rec: 06/22/19 13:09 AB [email or web address]) Physical Therapy Current Condition Current Condition Evaluation Date 06/22/19 Treatment Diagnosis s/p R TKA; difficulty in walking Onset Date 06/21/19 Weight Bearing Status Weight Bearing Status Weight Bear as Tolerated M3 PT-IP Subjective Start: 06/21/19 14:38 Freq: NEEDED Status: Active Protocol: Document 06/24/19 09:02 CLB (Rec: 06/24/19 15:26 CLB [id number]) Subjective Physical Therapy Visit Type Type Treatment Note Visit Start Time 09:02 Visit Stop Time 09:45 Total Visit Minutes 43 Number of CODE OFFICIAL Visits 3 Physical Therapy Visit Comments Patient Comments pt agreeable to do PT Therapy Pain Assessment Pain When Pain Assessed At Rest Pain Present Pain Present Denied Pain M4 PT-IP Mobility and Gait Start: 06/21/19 14:38 Freq: NEEDED Status: Active Protocol: Document 06/24/19 09:02 CLB (Rec: 06/24/19 15:26 CLB [id number]) PT-Bed Mobility Assessment Supine to Sit Supine to Sit Minimal Assistance,1 Person Assistance,Head of Bed Elevated Scooting Scooting to Edge of Bed Contact Guard Assistance PT-Transfer Assessment Sit to and From Stand Sit to and from Stand Minimal Assistance,1 Person Assistance,Use of Upper Extremities Equipment Transfer Assistive Device Gait Belt,Front Wheeled Walker Orthotic/Prosthetic Devices or Brace: No Transfers Transfer Destination Chair Transfer Ability Level of Assist Minimal Assistance,1 Person Assistance,Use of Upper Extremities Comments Mobility Comments Pt able to use cane to bring leg off EOB. Gait Assessment Gait Gait Assistance Required: Minimum Assistance,1 Person Assist Distance (Feet) 30 Able to Maintain Weight Bearing Status Yes During Gait Assistive Devices Assistive Device Gait Belt,Front Wheeled Walker Gait Deviations General Gait Pattern Antalgic,Decreased Stride Length,Decreased Feet Clearance Factors Limiting Gait Function Factors Limiting Gait Function Decreased Activity Tolerance, Decreased Strength,Limited Range of Motion,Pain,Poor Balance,Poor Safety Awareness Comments Gait Comments Pt able to ambulate with increased time and Max cues for step sequencing. Pt very fatigued after ~30ft. Stair Climbing Assessment Comments Stair Climbing Comments Unable M5 PT-IP Objective Assessments Start: 06/21/19 14:38 Freq: NEEDED Status: Active Protocol: Document 06/22/19 10:57 AB (Rec: 06/22/19 13:09 AB [email or web address]) Orientation Orientation/Cognition Level of Alertness Alert Orientation Name,Place,Situation Language Function Ability No Deficits Noted Safety Awareness Decreased Safety Awareness Memory Description Short Term Impaired Comments pt slightly sleepy and requires cues to open eyes with activities but able to answer questions and follow directions Gross Range of Motion Lower Extremity ROM Assessment Right Impaired Impairments R knee flexion: 25 deg extension: -20 deg Strength Lower Extremity Strength Assessment Bilaterally Impaired Comments Strength Comments LLE: 3+/5 RLE: 3-/5 Muscle Tone Muscle Tone WNL Yes M6 PT-IP Treatment Start: 06/21/19 14:38 Freq: NEEDED Status: Active Protocol: Document 06/24/19 09:02 CLB (Rec: 06/24/19 15:26 CLB [id number]) Physical Therapy Treatment Exercises Exercises Ankle Pumps,Gluteal Sets,Quad Sets,Heel Slides,Short Arc Quads Education Education Provided Weight Bearing Status,Safety M7 PT-IP Assessment and Plan Start: 06/21/19 14:38 Freq: NEEDED Status: Active Protocol: Document 06/24/19 09:02 CLB (Rec: 06/24/19 15:26 CLB [id number]) PT Summary Assessment and Plan Summary Impairments Pain,ROM,Strength,Balance, Coordination,Sensation,Bed Mobility,Transfers,Gait, Activity Tolerance Progress Towards Goals Slow Progress due to Pain,Slow Progress due to Medical Issues,Slow Progress due to Activity Tolerance Assessment Summary Pt progressing slowly due to decreased activity tolerance. Pt is very sleepy during tx sessions requiring cues to keep her eyes open. Pt requires one step instruction in order to be able to follow through with proper sequencing and needs increased time to initiate movement due to her sleepiness. Due to pts slow progress with mobility she will need SNF rehab to improve strength, and increase activity tolerance. Goals Bed Mobility Goal Minimal Assistance Transfer Goal Minimal Assistance,Front Wheeled Walker Gait Goal Minimal Assistance,Front Wheel Walker Gait Distance 100 Days to Meet Goals 5 Frequency of Treatment Frequency Of Treatment Twice a Day Treatment Plan Physical Therapy Treatment Plan Bed Mobility Training,Transfer Training,Gait Training, Therapeutic Exercise,Balance Retraining,Post Op Education, Discharge Planning,Hot or Cold Pack,Neuromuscular Re-ed, Coordination Retraining,Manual Therapy Other Recommendations and Next Treatment transfers, ambulation Focus Recommendations To Nursing Amount of Assist Needed 2 Person Assist Discharge Recommendations PT Discharge Recommendations SNF Rehab
[2019-06-24 12:00] VITALS: BP 142/69; PULSE 102; RESP 18; TEMP 37.6; O2SAT 94
--- NOTE | 2019-06-24 13:31 | PC.NURSE ---
Day shift: Pt sitting in chair after breakfast. Tolerating well. Flexaril ordered by JESENIA Nicole and that was given. 10mg PO oxycodone and Flexaril given per MAR with result of pain 0/10. Pt to work with PT/OT again this afternoon. Call light in reach. Pt agrees that she will not get OOB w/o help from staff. Medium fall risk at this time.
[2019-06-24 15:40] VITALS: BP 143/69; PULSE 89; RESP 18; TEMP 36.9; O2SAT 95
--- NOTE | 2019-06-24 15:48 | CM.DPC ---
DCP/Continued: Reviewed chart. Met with patient to confirm d/c plan. Current plan [facility] for [facility]. Therapy continues to recommend SNF and patient continues to be agreeable to go for short SNF stay. P: [facility] when medically stable. Grecia aware of potential d/c tomorrow. YENNY Sifuentes
--- NOTE | 2019-06-24 16:22 | PT.IPTN ---
Current Diagnoses Unilateral primary osteoarthritis, right knee (06/21/19) Presence of left artificial knee joint (06/21/19) Surgery Performed Operation Date: 06/21/19 09:45 Actual Procedures p Total Knee Arthroplasty(Right) - Patrice Betancourt MD Physical Therapy Treatment Note M2 PT-IP Current Condition Start: 06/21/19 14:38 Freq: NEEDED Status: Active Protocol: Document 06/22/19 10:57 AB (Rec: 06/22/19 13:09 AB [email or web address]) Physical Therapy Current Condition Current Condition Evaluation Date 06/22/19 Treatment Diagnosis s/p R TKA; difficulty in walking Onset Date 06/21/19 Weight Bearing Status Weight Bearing Status Weight Bear as Tolerated M3 PT-IP Subjective Start: 06/21/19 14:38 Freq: NEEDED Status: Active Protocol: Document 06/24/19 15:58 CLB (Rec: 06/24/19 16:34 CLB [id number]) Subjective Physical Therapy Visit Type Type Treatment Note Visit Start Time 15:58 Visit Stop Time 16:22 Total Visit Minutes 24 Number of THEOLOGY PROFESSOR Visits 4 Physical Therapy Visit Comments Patient Comments pt agreeable to do PT Therapy Pain Assessment Pain When Pain Assessed After Treatment Pain Present Pain Present Pain Reported Location Right Knee Intensity 6 Scale Used Numeric (1 - 10) Pain Management Techniques Re-positioning,Timing of Activity with Medications M4 PT-IP Mobility and Gait Start: 06/21/19 14:38 Freq: NEEDED Status: Active Protocol: Document 06/24/19 15:58 CLB (Rec: 06/24/19 16:34 CLB [id number]) PT-Bed Mobility Assessment Supine to Sit Supine to Sit Minimal Assistance,1 Person Assistance,Head of Bed Elevated Sit to Supine Sit to Supine Minimal Assistance,1 Person Assistance PT-Transfer Assessment Sit to and From Stand Sit to and from Stand Minimal Assistance,1 Person Assistance,Use of Upper Extremities Equipment Transfer Assistive Device Gait Belt,Front Wheeled Walker Orthotic/Prosthetic Devices or Brace: No Transfers Transfer Destination Bed Transfer Ability Level of Assist Minimal Assistance,1 Person Assistance,Use of Upper Extremities Comments Mobility Comments Pt able to get RLE of bed w/o use of cane but needed Min A of RLE back into bed. Gait Assessment Gait Gait Assistance Required: Minimum Assistance,1 Person Assist Distance (Feet) 15 Able to Maintain Weight Bearing Status Yes During Gait Assistive Devices Assistive Device Gait Belt,Front Wheeled Walker Gait Deviations General Gait Pattern Antalgic,Decreased Stride Length,Decreased Feet Clearance Factors Limiting Gait Function Factors Limiting Gait Function Decreased Activity Tolerance, Decreased Strength,Limited Range of Motion,Pain,Poor Balance,Poor Safety Awareness Comments Gait Comments Pt felt she was unable to ambulate further stating she felt like she did enough today . Stair Climbing Assessment Comments Stair Climbing Comments Unable M5 PT-IP Objective Assessments Start: 06/21/19 14:38 Freq: NEEDED Status: Active Protocol: Document 06/22/19 10:57 AB (Rec: 06/22/19 13:09 AB [email or web address]) Orientation Orientation/Cognition Level of Alertness Alert Orientation Name,Place,Situation Language Function Ability No Deficits Noted Safety Awareness Decreased Safety Awareness Memory Description Short Term Impaired Comments pt slightly sleepy and requires cues to open eyes with activities but able to answer questions and follow directions Gross Range of Motion Lower Extremity ROM Assessment Right Impaired Impairments R knee flexion: 25 deg extension: -20 deg Strength Lower Extremity Strength Assessment Bilaterally Impaired Comments Strength Comments LLE: 3+/5 RLE: 3-/5 Muscle Tone Muscle Tone WNL Yes M6 PT-IP Treatment Start: 06/21/19 14:38 Freq: NEEDED Status: Active Protocol: Document 06/24/19 15:58 CLB (Rec: 06/24/19 16:34 CLB [id number]) Physical Therapy Treatment Exercises Exercises Ankle Pumps,Gluteal Sets,Quad Sets,Heel Slides,Short Arc Quads Education Education Provided Weight Bearing Status,Safety Other Treatments Other Treatment Performed Put on SCD's once pt was back to bed. M7 PT-IP Assessment and Plan Start: 06/21/19 14:38 Freq: NEEDED Status: Active Protocol: Document 06/24/19 15:58 CLB (Rec: 06/24/19 16:34 CLB [id number]) PT Summary Assessment and Plan Summary Impairments Pain,ROM,Strength,Balance, Coordination,Sensation,Bed Mobility,Transfers,Gait, Activity Tolerance Progress Towards Goals Slow Progress due to Pain,Slow Progress due to Medical Issues,Slow Progress due to Activity Tolerance Assessment Summary Pt continues to require increased time all mobility and decreased activity tolerance. Pt is able to perform theraputic exercises with AROM/AAROM. Pt with increased pain after therapy session requesting pain meds. RN informed. Pt left in bed with all needs within reach, bed alarm on, SCD's on and ice on right knee. Pt will require SNF rehab to improve mobility and increase activity tolerance. Goals Bed Mobility Goal Minimal Assistance Transfer Goal Minimal Assistance,Front Wheeled Walker Gait Goal Minimal Assistance,Front Wheel Walker Gait Distance 100 Days to Meet Goals 5 Frequency of Treatment Frequency Of Treatment Twice a Day Treatment Plan Physical Therapy Treatment Plan Bed Mobility Training,Transfer Training,Gait Training, Therapeutic Exercise,Balance Retraining,Post Op Education, Discharge Planning,Hot or Cold Pack,Neuromuscular Re-ed, Coordination Retraining,Manual Therapy Other Recommendations and Next Treatment transfers, ambulation Focus Recommendations To Nursing Amount of Assist Needed 1 Person Assist Discharge Recommendations PT Discharge Recommendations SNF Rehab
[2019-06-24 17:05] VITALS: PULSE 93; O2SAT 95
[2019-06-24 20:47] VITALS: BP 145/79; PULSE 91; RESP 19; TEMP 36.5; O2SAT 94
[2019-06-24] MEDS: SENNOSIDES 8.6 MG TABLET PO (21:02)
[2019-06-24] MEDS: PRAVASTATIN 20 MG TABLET 10 MG PO (21:02)
[2019-06-25 01:15] VITALS: BP 145/68; PULSE 90; RESP 15; TEMP 36.8; O2SAT 95
--- NOTE | 2019-06-25 01:24 | PC.NURSE ---
Addendum entered by Daysi Dwyer R.N. 06/25/19 06:36: States pain this morning is 5/10; medicated with Oxycodone. Addendum entered by Daysi Dwyer R.N. 06/25/19 03:46: Up to bathroom and now crying stating pain has gotten out of control as she didn't request pain meds earlier; medicated by JAMISON Mujica with Oxycodone and now given Vistaril in addition to ice packs. Allowed patient to vent. Assured patient RN would check with her at 0630 to see if she wants more pain medication at that time. Original Note: Patient is alert and oriented. Breath sounds with expiratory wheezes anterior upper lobes but CTA posteriorly; RA sat 95%. HRR. Denies nausea. BT present and is passing flatus but has not had BM since 06/21; refused MOM or prune juice on previous shift but did take Senna. Denies dysuria, frequency or urgency. Able to turn self in bed. Uses walker and 1 assist when out of bed due to weakeness in right LE. Aquacel with small spot of drainage noted; romero wrap is CDI. Bruising on left UE and right thigh noted. Allevyn dressing to right buttock is intact with dime size amount serous drainage noted. CMS intact bilaterally. Wearing calf SCD's. Fall risk score is moderate; bed alarm is activated. Currently denies pain but agreeable to ice pack being applied.
[2019-06-25] MEDS: OXYCODONE IR 5 MG TABLET 10 MG PO ×4 (03:34→16:12)
[2019-06-25] MEDS: hydrOXYzine pamoate 25 MG CAPSULE PO (03:43)
[2019-06-25 03:45] VITALS: BP 157/78; PULSE 93; RESP 20; TEMP 37.1; O2SAT 98
[2019-06-25 07:00] VITALS: BP 157/62; PULSE 92; RESP 16; TEMP 37.7; O2SAT 95
[2019-06-25] MEDS: CYCLOBENZAPRINE 5 MG TABLET PO ×2 (07:40→13:27)
[2019-06-25] MEDS: ACETAMINOPHEN 325 MG TABLET 975 MG PO ×2 (08:26→14:28)
[2019-06-25] MEDS: ASPIRIN EC 81 MG TABLET PO (08:26)
[2019-06-25] MEDS: DOCUSATE 100 MG CAPSULE PO (08:28)
[2019-06-25] MEDS: MAGNESIUM HYDROXIDE 30 ML UDC PO (08:28)
--- NOTE | 2019-06-25 10:10 | PT.IPTN ---
Current Diagnoses Unilateral primary osteoarthritis, right knee (06/21/19) Presence of left artificial knee joint (06/21/19) Surgery Performed Operation Date: 06/21/19 09:45 Actual Procedures p Total Knee Arthroplasty(Right) - Patrice Betancourt MD Physical Therapy Treatment Note M2 PT-IP Current Condition Start: 06/21/19 14:38 Freq: NEEDED Status: Active Protocol: Document 06/22/19 10:57 AB (Rec: 06/22/19 13:09 AB [email or web address]) Physical Therapy Current Condition Current Condition Evaluation Date 06/22/19 Treatment Diagnosis s/p R TKA; difficulty in walking Onset Date 06/21/19 Weight Bearing Status Weight Bearing Status Weight Bear as Tolerated M3 PT-IP Subjective Start: 06/21/19 14:38 Freq: NEEDED Status: Active Protocol: Document 06/25/19 10:10 CLB (Rec: 06/25/19 10:57 CLB [email or web address]) Subjective Physical Therapy Visit Type Type Patient Refusal Notes Pt refused therapy stating she did not want to work with therapy at this time to come back after her next pain med which is on white board as 12: 30. Will check back with pt in PM. M4 PT-IP Mobility and Gait Start: 06/21/19 14:38 Freq: NEEDED Status: Active Protocol: Document 06/24/19 15:58 CLB (Rec: 06/24/19 16:34 CLB [id number]) PT-Bed Mobility Assessment Supine to Sit Supine to Sit Minimal Assistance,1 Person Assistance,Head of Bed Elevated Sit to Supine Sit to Supine Minimal Assistance,1 Person Assistance PT-Transfer Assessment Sit to and From Stand Sit to and from Stand Minimal Assistance,1 Person Assistance,Use of Upper Extremities Equipment Transfer Assistive Device Gait Belt,Front Wheeled Walker Orthotic/Prosthetic Devices or Brace: No Transfers Transfer Destination Bed Transfer Ability Level of Assist Minimal Assistance,1 Person Assistance,Use of Upper Extremities Comments Mobility Comments Pt able to get RLE of bed w/o use of cane but needed Min A of RLE back into bed. Gait Assessment Gait Gait Assistance Required: Minimum Assistance,1 Person Assist Distance (Feet) 15 Able to Maintain Weight Bearing Status Yes During Gait Assistive Devices Assistive Device Gait Belt,Front Wheeled Walker Gait Deviations General Gait Pattern Antalgic,Decreased Stride Length,Decreased Feet Clearance Factors Limiting Gait Function Factors Limiting Gait Function Decreased Activity Tolerance, Decreased Strength,Limited Range of Motion,Pain,Poor Balance,Poor Safety Awareness Comments Gait Comments Pt felt she was unable to ambulate further stating she felt like she did enough today . Stair Climbing Assessment Comments Stair Climbing Comments Unable M5 PT-IP Objective Assessments Start: 06/21/19 14:38 Freq: NEEDED Status: Active Protocol: Document 06/22/19 10:57 AB (Rec: 06/22/19 13:09 AB [email or web address]) Orientation Orientation/Cognition Level of Alertness Alert Orientation Name,Place,Situation Language Function Ability No Deficits Noted Safety Awareness Decreased Safety Awareness Memory Description Short Term Impaired Comments pt slightly sleepy and requires cues to open eyes with activities but able to answer questions and follow directions Gross Range of Motion Lower Extremity ROM Assessment Right Impaired Impairments R knee flexion: 25 deg extension: -20 deg Strength Lower Extremity Strength Assessment Bilaterally Impaired Comments Strength Comments LLE: 3+/5 RLE: 3-/5 Muscle Tone Muscle Tone WNL Yes M6 PT-IP Treatment Start: 06/21/19 14:38 Freq: NEEDED Status: Active Protocol: Document 06/24/19 15:58 CLB (Rec: 06/24/19 16:34 CLB [id number]) Physical Therapy Treatment Exercises Exercises Ankle Pumps,Gluteal Sets,Quad Sets,Heel Slides,Short Arc Quads Education Education Provided Weight Bearing Status,Safety Other Treatments Other Treatment Performed Put on SCD's once pt was back to bed. M7 PT-IP Assessment and Plan Start: 06/21/19 14:38 Freq: NEEDED Status: Active Protocol: Document 06/24/19 15:58 CLB (Rec: 06/24/19 16:34 CLB [id number]) PT Summary Assessment and Plan Summary Impairments Pain,ROM,Strength,Balance, Coordination,Sensation,Bed Mobility,Transfers,Gait, Activity Tolerance Progress Towards Goals Slow Progress due to Pain,Slow Progress due to Medical Issues,Slow Progress due to Activity Tolerance Assessment Summary Pt continues to require increased time all mobility and decreased activity tolerance. Pt is able to perform theraputic exercises with AROM/AAROM. Pt with increased pain after therapy session requesting pain meds. RN informed. Pt left in bed with all needs within reach, bed alarm on, SCD's on and ice on right knee. Pt will require SNF rehab to improve mobility and increase activity tolerance. Goals Bed Mobility Goal Minimal Assistance Transfer Goal Minimal Assistance,Front Wheeled Walker Gait Goal Minimal Assistance,Front Wheel Walker Gait Distance 100 Days to Meet Goals 5 Frequency of Treatment Frequency Of Treatment Twice a Day Treatment Plan Physical Therapy Treatment Plan Bed Mobility Training,Transfer Training,Gait Training, Therapeutic Exercise,Balance Retraining,Post Op Education, Discharge Planning,Hot or Cold Pack,Neuromuscular Re-ed, Coordination Retraining,Manual Therapy Other Recommendations and Next Treatment transfers, ambulation Focus Recommendations To Nursing Amount of Assist Needed 1 Person Assist Discharge Recommendations PT Discharge Recommendations SNF Rehab
--- NOTE | 2019-06-25 11:37 | PM.PNPO.1 ---
Subjective Subjective Date Patient Seen: 06/25/19 Time Patient Seen: 07:30 Interval history: Postop day 4 status post TLIF with Dr. Coker. No acute events overnight. Patient has no complaints. Pain managed with Dilaudid to oxycodone and Vistaril. Patient ambulating with physical therapy. Patient voiding any eating without assistance or difficulty. Exam Vital Signs (past 8 hours): - 06/25/19 03:45 06/25/19 07:00 Temperature 98.7 F 99.8 F H Pulse Rate 93 H 92 H Respiratory Rate 20 16 Blood Pressure 157/78 H 157/62 H Pulse Oximetry 98 95 Oxygen Delivery Method Room Air Oxygen Flow Rate 0 Narrative Exam Narrative: Old female to for blood in a chair in no apparent distress. A&O x3. Dressing is CDI. Objective Labs Result Diagrams: 06/22/19 06:22 Assessment & Plan Post-op Postoperative Procedures: Procedures Operation Date: 06/21/19 09:45 Actual Procedures Side Surgeon p Total Knee Arthroplasty Right aPtrice Betancourt MD
[2019-06-25] MEDS: BISACODYL 10 MG SUPP PR (13:27)
[2019-06-25 15:45] VITALS: BP 158/64; PULSE 94; RESP 20; TEMP 36.9; O2SAT 93
--- NOTE | 2019-06-25 15:47 | P.DS_ITS ---
History of Present Illness History of Present Illness Date Patient Seen: 06/25/19 Time Patient Seen: 08:00 Chief complaint: [id number] Narrative: The patient presents today for total knee arthroplasty after failure of conservative treatment. The nature of the procedure including the risks and benefits, alternatives, postoperative course and expected outcome were discussed and all questions answered. Consent was obtained. Operative site confirmed and marked. Post op day 4 s/p right knee total arthroplasty. No acute events overnight. Patient is ambulating with physical therapy. Pain is well managed with oxycodone, dilaudid, tylenol. Muscle spasms are controlled with vistaril. Patient is voiding and eating without difficulty or assistance. No complaints. 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 Betancourt. During hospital course, patient had difficulty with pain management. Pain was controlled with dilaudid, oxycodone and tylenol. Muscle spasm was controlled with vistaril. Prior to discharge, patient was ambulating with physical therapy. patient was eating and voiding without difficulty or assistance. ASA 81 mg bid for dvt prophylaxis. Exam Vital Signs (past 8 hours): - 06/25/19 15:45 Temperature 98.4 F Pulse Rate 94 H Respiratory Rate 20 Blood Pressure 158/64 H Pulse Oximetry 93 Oxygen Delivery Method Room Air Oxygen Flow Rate 0 Narrative Exam Narrative: 73 year old female, sitting comfortably in chair, in no apparent distress. A&Ox3. Dressing is CDI. Patient able to actively dorsiflex/plantar flex. Sensory function grossly intact to light touch in LE b/l. Dorsalis pedis 1+ b/l. +1 pitting edema in right calf/ankle. SCD's in place. Objective Labs Result Diagrams: 06/22/19 06:22 Discharge Plan Discharge Plan Patient Disposition: SNF Transfer to: [facility] [place] Consult as needed: Dental, Hearing, Mental health, Podiatry and Vision Discharge Med Rec/Prescriptions Prescriptions: New hydroxyzine pamoate [Vistaril] 25 mg capsule 25 mg PO Q6H PRN (Reason: muscle spasm) Qty: 30 RF: 0 acetaminophen [Tylenol Extra Strength] 500 mg tablet 500 mg PO Q4H PRN (Reason: pain (scale score 4-6)) Qty: 30 RF: 0 ibuprofen 400 mg tablet 400 mg PO Q4H Qty: 30 RF: 0 oxycodone 10 mg tablet 10 mg PO Q3H PRN (Reason: pain) Qty: 40 RF: 0 aspirin 81 mg tablet,delayed release (DR/EC) 81 mg PO BID Qty: 60 RF: 0 Continued pravastatin 10 mg Tablet 10 mg PO BEDTIME RF: 0 Discharge Health Status Brief summary of current health status: post op day 4 s/p right knee total arthroplasty with Dr. Betancourt. Provider Discharge Instructions Diet: Regular Activity: weight bearing as tolerated. total knee arthroplasty precautions Cold/Heat Therapy: continue cold/heat therapy as needed Skin/Wound/Dressing Care Report to your healthcare provider any signs of infection, such as:: chills, fever, increased pain, unusual drainage and unusual redness Dressing: aquacell dressing can be used in shower. dont soak in bath. if saturated contact office. [facility] Rehabilitation [facility] Reason for rehabilitation: Post-operative therapy Rehab type: Physical therapy and Occupational therapy Visit Report/Discharge Packet Instructions: DI for Knee Replacement
--- NOTE | 2019-06-25 15:59 | PC.NURSE ---
Addendum entered by Patrizia Guzman R.N. 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 All belongings and walker sent with her, her prescription bottles placed in suitcase & I instructed Alka to notify nurse when admitted to [facility] that she has pill bottles with her. DC packet complete, given to cabulance equipment driver. He took belongings with him to taxi, patient then transferred to wheelchair and wheeled to ER entrance by MANUEL Salas, where cabulance equipment driver is waiting. Patient denies questions or concerns prior to DC, is [employer] and situation. Original Note: DC notes: Alka had suppository at 1327, just now transferred from recliner back to bed per her request. Denies urge to have BM. Physician's Technical Education Teacher here to sign DC prescription paperwork, all DC paperwork is now complete. Patient has no IV. She is ready for transfer. assistant manager of operations was able to schedule a private cabulance for transfer, ETA is 1700. I called full nursing report in to Grecia at [facility] in [place]. She is aware the patient has had no BM, and that we gave her a suppository. She said their nurse would follow up about this.
--- NOTE | 2019-06-25 16:11 | CM.DPC ---
DCP/continued: Reviewed chart. It has been anticipated that patient will d/c to [facility] today. Awaiting signed orders from orthopedic group most of the day. Spoke with Grecia at [facility] and they are agreeable to accept. Orders obtained and signed at approximately 3:45pm. Faxed orders, PASRR, and d/c summary to Grecia at [facility]. RN given number to call report. Grecia reports that she will arrange cabuance for hand picker at approximately 5:00pm. RN updated. Met with patient and she continues to be aware and agreeable to plan. P: [facility] today. YENNY Sifuentes
== END 2019-06-25 17:52 | DRG 470 ==
LOC: AC 06-25 13:22 → OR 06-26 07:26
PROVIDERS: Admitting Provider Orthopaedic Surgery; Visit Provider Orthopaedic Surgery
PROC: 0SRC0JZ Replacement of Right Knee Joint with Synthetic Substitute, Open Approach (ICD-10-PCS; CPT 27447; principal; 2019-06-21 09:45)
DX: M17.11 Unilateral primary osteoarthritis, right knee (principal); Z96.652 Presence of left artificial knee joint; G89.18 Other acute postprocedural pain; E66.9 Obesity, unspecified; G47.33 Obstructive sleep apnea (adult) (pediatric)
CPT/HCPCS: 36415; 64447; 73560; 85014; 85018; 94760; 97110; 97116; 97162; 97530; C1776; C9290; J0690; J1170; J2250; J2704; J3010